=== PATIENT | female | born 1945 | race Caucasian/White ===

== ENCOUNTER → 2019-11-27 14:35 | Outpatient (BNVA) | payer MEDICARE, SELFPAY | PROVIDERS: Family Provider Nurse Practitioner Family; PCP Nurse Practitioner Family; Visit Provider Nurse Practitioner Family | DX: H53.9 Unspecified visual disturbance (principal); I10 Essential (primary) hypertension; E78.5 Hyperlipidemia, unspecified; R25.2 Cramp and spasm; F41.9 Anxiety disorder, unspecified; F32.9 Major depressive disorder, single episode, unspecified; K21.9 Gastro-esophageal reflux disease without esophagitis | CPT/HCPCS: 80053; 80061; 84443; 85025 ==

== ENCOUNTER 2019-12-13 07:44 | Outpatient (CLI) | payer MEDICARE, SELFPAY ==
--- NOTE | 2019-12-13 08:00 | USCV_ITS ---
Margot Larsen Age: 74 Gender: F : 1945 Exam Date: 12/13/2019 07:46 Ordering Phys: Sara Madrigal [employer] Technologist: Rebecca Stoddard Exam Location: [facility] [place] Indication: Vision Disturbance Risk Factors: Previous Vascular Surgery: None Right Brachial BP: / Left Brachial BP: / Right Left Velocity (cm/s) Spectral Plaque Velocity (cm/s) Spectral Plaque Syst/Diast Broadening Syst/Diast Broadening 59.20/ 13.80 Prox CCA 81.50 / 12.50 67.30/ 15.40 Mid CCA 58.60 / 13.90 54.60/ 16.10 Distal CCA 56.80 / 16.50 71.00/ 17.70 Prox ICA 55.90 / 17.10 79.70/ 25.10 Mid ICA 60.00 / 19.70 77.40/ 21.40 Distal ICA 81.50 / 27.40 71.00 ECA 91.50 1.18 ICA/CCA 1.39 Antegrade Vertebral Antegrade 36.60/ 5.00 cm/s 48.00/ 9.40 cm/s Bi Subclavian Bi 64.30 81.50 FINDINGS At this time there appears to be irregular shaped plaque in the proximal ICA noted bilaterally. CONCLUSIONS Right ICA stenosis <50%. Moderate atheromatous plaque right carotid bulb/ICA. Left ICA stenosis <50%. Moderate atheromatous plaque left carotid bulb/ICA. Normal antegrade Doppler flow noted in the right vertebral artery. Normal antegrade Doppler flow noted in the left vertebral artery. David Snyder MD (Electronically Signed) Final Date: 13 December 2019 10:21 S
== END 2019-12-13 07:45 | disposition home or self-care (01) ==
PROVIDERS: Family Provider Nurse Practitioner Family; PCP Nurse Practitioner Family; Visit Provider Nurse Practitioner Family
DX: H53.9 Unspecified visual disturbance (principal); I65.23 Occlusion and stenosis of bilateral carotid arteries
CPT/HCPCS: 93880

== ENCOUNTER 2020-04-21 10:20 | Outpatient (CLI) | payer OTHER, SELFPAY ==
--- NOTE | 2020-04-21 10:28 | XRR_ITS ---
PROCEDURE INFORMATION: Exam: XR Left Hip with Pelvis when Performed Exam date and time: 04/21/2020 11:03 AM Age: 75 years old Clinical indication: Patient HX: Intermittent left hip pain while walking for several years, no known injury; Additional info: Hip joint pain left TECHNIQUE: Imaging protocol: XR Left hip with pelvis when performed. Views: 2 or 3 views. COMPARISON: No relevant prior studies available. FINDINGS: Bones/joints: Mild degenerative changes within the hip including mild joint space narrowing and early osteophyte formation. No fracture. The trabecular stress markings normal. Soft tissues: Unremarkable. XR/XR hip LT 2-3V wo/w pel* [id number] IMPRESSION: Mild degenerative changes within the hip.
== END 2020-04-21 10:21 | disposition home or self-care (01) ==
LOC: RAD 10:25
PROVIDERS: PCP Nurse Practitioner Family; Visit Provider Nurse Practitioner Family
DX: M25.552 Pain in left hip (principal)
CPT/HCPCS: 73502

== ENCOUNTER 2020-09-16 13:23 | Outpatient (CLI) | payer MEDICARE, SELFPAY ==
--- NOTE | 2020-09-16 13:15 | XRR_ITS ---
PROCEDURE INFORMATION: Exam: XR Abdomen, 1 View Exam date and time: 09/16/2020 2:04 PM Age: 75 years old Clinical indication: Condition or disease; Kidney or ureter condition; Calculus (stone) in kidney; Additional info: Bilateral renal calculus TECHNIQUE: Imaging protocol: XR of the abdomen. Views: Frontal supine view of the abdomen. 1 View. COMPARISON: [place] XR KUB [id number] 09/11/2019 11:51 AM FINDINGS: Gastrointestinal tract: Normal. No bowel dilation. Organs: Calcified caliceal stones are present in the proximal collecting system of both kidneys. The right renal stone measures 8.8 mm, the left renal stone measures 9.3 mm. These findings were present on prior examination and appears similar. The kidneys are partially obscured by colonic contents Bones/joints: Unremarkable. XR/XR KUB [id number] IMPRESSION: 1. No acute GI abnormality. 2. Stable bilateral calcified renal stones
== END 2020-09-16 13:24 | disposition home or self-care (01) ==
LOC: RAD 13:49
PROVIDERS: PCP Nurse Practitioner Family; Visit Provider Urology
DX: N20.0 Calculus of kidney (principal)
CPT/HCPCS: 74018; 81003; 87086

== ENCOUNTER 2020-12-17 15:19 | Outpatient (CLI) | payer MEDICARE, SELFPAY | END 2020-12-17 15:20 | disposition home or self-care (01) | LOC: LAB 07-05 10:41 | PROVIDERS: PCP Nurse Practitioner Family; Visit Provider Urology | DX: N39.41 Urge incontinence (principal) | CPT/HCPCS: 81003 ==

== ENCOUNTER 2021-01-21 09:15 | Outpatient (CLI) | payer OTHER, SELFPAY ==
--- NOTE | 2021-01-21 09:22 | US_ITS ---
WS: [id number] RIGHT UPPER QUADRANT ULTRASOUND HISTORY: ELEVATED LIVER FUNCTION TEST COMPARISON: None available. Liver: 15.2 cm in length. Normal size liver. Moderate diffuse coarsened echotexture. Surface of the l iver is slightly irregular. No mass or bile duct dilatation. Gallbladder: Normally distended gallbladder with no stones or wall thickening. CBD: 0.4 cm Pancreas: Poorly visualized pancreas. Right kidney: 9.0 cm in length. Normal size and echogenicity. No hydronephrosis or mass. Aorta and IVC: Unremarkable abdominal aorta and IVC. No ascites. US/US abdomen limited [id number] IMPRESSION: 1. Normal gallbladder. 2. Moderate hepatic steatosis. Early changes of cirrhosis may appear similar.
== END 2021-01-21 09:16 | disposition home or self-care (01) ==
LOC: RAD 09:18
PROVIDERS: PCP Nurse Practitioner Family; Visit Provider Nurse Practitioner Family
DX: R94.5 Abnormal results of liver function studies (principal); K76.0 Fatty (change of) liver, not elsewhere classified
CPT/HCPCS: 76705

== ENCOUNTER 2021-01-24 16:19 | Emergency (ER) | payer MEDICARE, SELFPAY ==
[2021-01-24 16:52] VITALS: BP 180/67; PULSE 82; RESP 18; TEMP 36.9; O2SAT 98; BMI 23.3
--- NOTE | 2021-01-24 18:09 | CTR_ITS ---
PROCEDURE INFORMATION: Exam: CT Abdomen And Pelvis With Contrast Exam date and time: 01/24/2021 6:12 PM Age: 76 years old Clinical indication: Abdominal pain; Localized; Right lower quadrant (rlq); Prior surgery; Surgery date: 6+ months; Surgery type: Hyst; Patient HX: C/O rlq pain w nausea TECHNIQUE: Imaging protocol: Computed tomography of the abdomen and pelvis with contrast. Radiation optimization: All CT scans at this facility use at least one of these dose optimization techniques: automated exposure control; mA and/or kV adjustment per patient size (includes targeted exams where dose is matched to clinical indication); or iterative reconstruction. Contrast material: OMNI 300; Contrast volume: 75 ml; Contrast route: INTRAVENOUS (IV); COMPARISON: CR XR hip LT 2-3V wo/w pel* [id number] 04/21/2020 11:07 AM RADIATION DOSE METRICS: Total DLP (mGy-cm): 790 FINDINGS: Liver: Normal. No mass. Gallbladder and bile ducts: Normal. No calcified stones. No ductal dilation. Pancreas: Normal. No ductal dilation. Spleen: Normal. No splenomegaly. Adrenal glands: Normal. No mass. Kidneys and ureters: There is a 7 mm x 6 mm calculus in the proximal right ureter.Mild to moderate hydronephrosis/hydroureter and associated inflammatory stranding. There are nonobstructing bilateral renal calculi. There are sub cm cyst in the left kidney with benign features. Follow-up is not necessary. Stomach and bowel: Unremarkable. No obstruction. No mucosal thickening. Appendix: No evidence of appendicitis. Intraperitoneal space: Unremarkable. No free air. No significant fluid collection. Vasculature: Unremarkable. No abdominal aortic aneurysm. Lymph nodes: There are pulmonary parenchymal calcifications consistent with remote granulomatous organism exposure.There are calcified mediastinal and perihilar lymph nodes consistent with prior granulomatous exposure. Urinary bladder: Unremarkable as visualized. Reproductive: The uterus is not visualized, consistent with hysterectomy. Bones/joints: There are degenerative changes in the lumbar spine. Lower lumbar disc bulges are present. Soft tissues: Unremarkable. CT/CT abdomen pelvis w con* [id number] IMPRESSION: There is a 7 mm x 6 mm calculus in the proximal right ureter with obstructive changes as described above. COMMENTS: Consistent with the [employer]'s Incidental Findings Committee white paper (J Am Misty Radiol 2018): Any incidental renal lesion less than 1 cm or classified as too small to characterize, or any incidental cystic renal lesion characterized as simple-appearing, is likely benign. No follow-up imaging is recommended for these lesions per consensus recommendations based on imaging criteria. Radiation Dose CTDIVOL = (mGy): DLP = 790 (mGy-cm)
--- NOTE | 2021-01-24 18:18 | ED_ITS ---
HPI - Abdominal Pain General: Chief Complaint: Abdominal Pain Stated Complaint: ABD pain Time Seen by Provider: 01/24/21 18:08 History of Present Illness: MD elicited complaint: abdominal pain Pertinent past history: kidney stones and other Onset (ago): hour(s) (12) Pain Consistency: intermittent Location: RLQ Severity: moderate Quality: cramping and stabbing Radiation: none Migration to: no migration Relieving factors: nothing Associated Symptoms: Reports nausea; Denies change in stool character, diarrhea, dysuria, fever(s), hematuria and vomiting Review of Systems Const: Denies: fever(s) Eyes: Denies: change in vision Card: Denies: chest pain or palpitations Resp: Denies: dyspnea, productive cough or non-productive cough GI: Reports: nausea; Denies: vomiting, diarrhea or change in stool character : Denies: dysuria or hematuria Neuro: Denies: headache(s) or confusion Psych: Denies: anxiety PFSH ED PFSH: Medical History (Updated 01/24/21 @ 20:51 by Alfonzo Dominguez DO) Anxiety and depression Hyperlipidemia Hypertension Family History (Updated 10/30/19 @ 15:49 by Renee Aguilera LPN) Mother Cancer Father Cancer Social History (Updated 10/30/19 @ 15:50 by Renee Aguilera LPN) Smoking and tobacco status: never smoked Alcohol intake: never Female Reproductive History: Para: 4 Physical Exam Const: GENERAL APPEARANCE: well developed ORIENTATION/CONSCIOUSNESS: Yes oriented to person, Yes oriented to place and Yes oriented to time HENMT: COMMON NORMALS: normocephalic, external ears normal and Normal external nose present HEAD & SCALP: normocephalic FACE & SINUS: normal facial exam NOSE: Normal external nose present and No nasal discharge present EXTERNAL EAR: Yes external ears normal Eye: COMMON NORMALS: Equal, round and reactive pupils present, EOMs intact bilaterally and conjunctivae normal EYELID: eyelids normal CONJUNCTIVA: Yes conjunctivae normal PUPIL: Yes Equal, round and reactive pupils present Chest: COMMONS NORMALS: normal inspection of the chest CHEST: No tenderness Resp: COMMON NORMALS: clear to auscultation bilaterally EFFORT & INSPECTION: No tachypneic, No respiratory distress, No retractions, No uses accessory muscles and No tracheal deviation AUSCULTATION: clear to auscultation bilaterally, no rhonchi, no wheezes and lung sounds not diminished Cardio: COMMON NORMALS: regular rate and regular rhythm RATE: regular rate RHYTHM: regular rhythm HEART SOUNDS: no murmurs PERIPHERAL PULSES: radial pulses present GI: INSPECTION: No abdominal distension AUSCULTATION: No Hyperactive bowel sounds present and No Hypoactive bowel sounds present PALPATION: Yes Tenderness to palpation present (GI) Details: RLQ, No Guarding due to palpation present (GI) and No Rigid due to palpation PERCUSSION: no dullness to percussion and no tympanic to percussion : COMMON NORMALS: Yes no CVA tenderness BLADDER/KIDNEY EXAM: Yes no CVA tenderness Back/Pelvis: COMMON NORMALS: no CVA tenderness Neuro: SENSORIUM/ORIENTATION: Yes oriented to person, Yes oriented to place and Yes oriented to time Psych: COMMON NORMALS: mental status grossly normal Skin: COMMON NORMALS: no rashes or lesions noted GENERAL SKIN EXAM: no rashes or lesions noted Course Vital Signs: Vital signs: Vital Signs Temperature 98.4 F 01/24/21 16:52 Pulse Rate 88 01/24/21 21:12 Respiratory Rate 18 01/24/21 21:12 Blood Pressure 161/101 01/24/21 21:12 Pulse Oximetry 97 01/24/21 21:12 MDM - Abdominal Pain MDM Narrative: Medical decision making narrative: White blood cell count 8.8. Hemoglobin 12.4. Electrolytes are benign. Creatinine is 0.7. CT with contrast shows a 6 x 7 proximal ureter stone on the right causing mild to moderate hydronephrosis, likely the cause of her symptoms. Her symptoms are minimal at this point. She does have increased white blood cells in her urine, but no leukocyte esterase or nitrite. She will be covered with antibiotics, given pain medication, and asked to follow-up as an outpatient. Lab Data: Labs: Lab Results 01/24/21 01/24/21 01/24/21 Range/Units 18:28 18:28 18:28 WBC 8.8 (4.0-10.0) 10^3/ uL RBC 4.52 (4.1-5.3) 10^6/u L Hgb 12.4 (11.5-15.3) g/dL Hct 39.9 (37.0-47.0) % MCV 88.3 (81-99) fL MCH 27.4 L (28.0-34.0) pg MCHC 31.1 (30.0-36.0) g/dL RDW 14.9 (12.1-15.1) % Plt Count 272 (130-400) 10^3/c mm MPV 11.9 H (7.4-10.4) fL Neut % (Auto) 72.6 % Lymph % (Auto) 20.0 % [place] % (Auto) 6.6 % Eos % (Auto) 0.0 % Baso % (Auto) 0.5 % Neut # (Auto) 6.40 (1.8-7.7) 10^3/u L Lymph # (Auto) 1.8 (0.8-4.8) 10^3/u L [place] # (Auto) 0.6 (0.2-0.9) 10^3/u L Eos # (Auto) 0.0 (0.0-0.8) 10^3/u L Baso # (Auto) 0.0 (0.0-0.1) 10^3/u L Nucleated RBC % (a uto) 0 % Nucleated RBCs # 0.0 /100WBC Sodium 144 (136-145) mmol/L Potassium 4.6 (3.5-5.1) mmol/L Chloride 106 (98-107) mmol/L Carbon Dioxide 27 (22-29) mmol/L Anion Gap 15.6 (5-19) BUN 19 (8-23) mg/dL Creatinine 0.7 (0.5-0.9) mg/dL GFR Calculation Not Reportable Glucose 87 (65-115) mg/dL Calculated Osmolal ity 300 H (285-295) mOsm/k g Lactate 0.9 (0.5-2.2) mmol/L Calcium 8.9 (8.5-10.5) mg/dL Total Bilirubin 0.6 (0.15-1.2) mg/dL AST 94 H (0-32) U/L ALT 55 H (0-33) U/L Alkaline Phosphata se 217 H (35-105) IU/L C-Reactive Protein 12.5 H (0.0-4.9) mg/L Total Protein 8.0 (6.6-8.7) g/dL Albumin 3.9 (3.5-5.2) g/dL Globulin 4.1 (1.3-4.6) g/dL Lipase 28 (13-60) U/L Urine Color (Yellow) Urine Appearance (CLEAR) Urine pH (5-7) Ur Specific Gravit y (1.005-1.030) Urine Protein (Negative) Urine Glucose (UA) (Normal) Urine Ketones (Negative) Urine Blood (Negative) Urine Nitrate (Negative) Urine Bilirubin (Negative) Urine Urobilinogen (Negative) mg/dL Ur Leukocyte Humaira ase (Negative) Urine RBC (0-2) /hpf Urine WBC (0-5) /hpf Ur Squamous Epith Cells (0-5) /hpf Amorphous Sediment Urine Bacteria (NONE) /hpf 01/24/21 Range/Units 19:56 WBC (4.0-10.0) 10^3/ uL RBC (4.1-5.3) 10^6/u L Hgb (11.5-15.3) g/dL Hct (37.0-47.0) % MCV (81-99) fL MCH (28.0-34.0) pg MCHC (30.0-36.0) g/dL RDW (12.1-15.1) % Plt Count (130-400) 10^3/c mm MPV (7.4-10.4) fL Neut % (Auto) % Lymph % (Auto) % [place] % (Auto) % Eos % (Auto) % Baso % (Auto) % Neut # (Auto) (1.8-7.7) 10^3/u L Lymph # (Auto) (0.8-4.8) 10^3/u L [place] # (Auto) (0.2-0.9) 10^3/u L Eos # (Auto) (0.0-0.8) 10^3/u L Baso # (Auto) (0.0-0.1) 10^3/u L Nucleated RBC % (a uto) % Nucleated RBCs # /100WBC Sodium (136-145) mmol/L Potassium (3.5-5.1) mmol/L Chloride (98-107) mmol/L Carbon Dioxide (22-29) mmol/L Anion Gap (5-19) BUN (8-23) mg/dL Creatinine (0.5-0.9) mg/dL GFR Calculation Glucose (65-115) mg/dL Calculated Osmolal ity (285-295) mOsm/k g Lactate (0.5-2.2) mmol/L Calcium (8.5-10.5) mg/dL Total Bilirubin (0.15-1.2) mg/dL AST (0-32) U/L ALT (0-33) U/L Alkaline Phosphata se (35-105) IU/L C-Reactive Protein (0.0-4.9) mg/L Total Protein (6.6-8.7) g/dL Albumin (3.5-5.2) g/dL Globulin (1.3-4.6) g/dL Lipase (13-60) U/L Urine Color Yellow (Yellow) Urine Appearance Sl hazy (CLEAR) Urine pH 6 (5-7) Ur Specific Gravit y 1.005 (1.005-1.030) Urine Protein Neg (Negative) Urine Glucose (UA) Norm (Normal) Urine Ketones Negative (Negative) Urine Blood 2+ H (Negative) Urine Nitrate Negative (Negative) Urine Bilirubin Neg (Negative) Urine Urobilinogen Norm (Negative) mg/dL Ur Leukocyte Humaira ase Negative (Negative) Urine RBC 5-10 H (0-2) /hpf Urine WBC 40-55 H (0-5) /hpf Ur Squamous Epith Cells 25-40 H (0-5) /hpf Amorphous Sediment Not Reportable Urine Bacteria 1+ H (NONE) /hpf Discharge Plan Discharge Patient Disposition: Home Clinical Impression: Ureterolithiasis Condition: Stable Prescriptions: New hydrocodone-acetaminophen 7.5-325 mg tablet 1 tab PO Q8H PRN (Reason: pain) Qty: 10 RF: 0 cefdinir 300 mg capsule 300 mg PO BID 5 Days Qty: 10 RF: 0 Zofran 4 mg tablet 4 mg PO Q6H PRN (Reason: nausea and vomiting) Qty: 10 RF: 0 No Action Prilosec OTC 20 mg tablet,delayed release (DR/EC) 20 mg PO ONCE RF: 0 duloxetine [Cymbalta] 60 mg capsule,delayed release(DR/EC) 60 mg PO ONCE 30 Days Qty: 30 RF: 2 amlodipine 5 mg tablet 5 mg PO QDAY 30 Days Qty: 30 RF: 2 atorvastatin 20 mg tablet 20 mg PO QDAY 30 Days Qty: 30 RF: 2 lisinopril 30 mg tablet 30 mg PO QDAY 30 Days Qty: 30 RF: 2 Discharge Orders: Discharge ED (Routine); Ordered 01/24/21 Ordered By: Alfonzo Dominguez Referrals: Jose Cardozo MD [Physician] - 1-3 days Carlyn Rose FNP [Primary Care Provider] - Discharge Diet: Advance as tolerated Discharge Activity: Increase activity as tolerated Patient Instructions: Kidney Stones (ED), Renal Colic (ED), Opioid Safety Activity Restrictions/Additional Instructions: Call urology Tuesday to make an appointment to be seen. Return for worsening pain despite treatment, fever greater than 100, vomiting liquids or medications, any other concerning symptoms. Coding Level of Care Code ED Guest Relations Representative for Chg Fwd Exam Comprehensive
[2021-01-24 18:31] VITALS: BP 196/62; PULSE 77; RESP 18; O2SAT 95
[2021-01-24 18:40] LABS: Basophils % 0.5 %; Hematocrit 39.9 % (37.0-47.0); Hemoglobin 12.4 g/dL (11.5-15.3); Lymphocytes # 1.8 10^3/uL (0.8-4.8); Mean Corpuscular HGB Conc 31.1 g/dL (30.0-36.0); Mean Corpuscular Hemoglobin 27.4 pg (28.0-34.0); Mean Corpuscular Volume 88.3 fL (81-99); Mean Platelet Volume 11.9 fL (7.4-10.4); Monocytes # 0.6 10^3/uL (0.2-0.9); Monocytes % 6.6 %; Neutrophils % 72.6 %; Nucleated Red Blood Cells % 0 %; Platelet Count 272 10^3/cmm (130-400); Red Blood Count 4.52 10^6/uL (4.1-5.3); Red Cell Distribution Width 14.9 % (12.1-15.1); White Blood Count 8.8 10^3/uL (4.0-10.0)
[2021-01-24] MEDS: ondansetron 2 mg/ML SDV 2 mL 4 MG IVP (18:49)
[2021-01-24] MEDS: sodium chloride 0.9% 1,000 ML 999 ML IV (18:49)
[2021-01-24] MEDS: enalaprilat 1.25 mg/mL Inj IVP (18:49)
[2021-01-24 19:15] LABS: Alanine Aminotransferase 55 U/L (0-33); Albumin Level 3.9 g/dL (3.5-5.2); Alkaline Phosphatase 217 IU/L (35-105); Anion Gap 15.6 (5-19); Aspartate Amino Transferase 94 U/L (0-32); Blood Urea Nitrogen 19 mg/dL (8-23); C Reactive Protein 12.5 mg/L (0.0-4.9); Calcium 8.9 mg/dL (8.5-10.5); Carbon Dioxide 27 mmol/L (22-29); Chloride 106 mmol/L (98-107); Globulin 4.1 g/dL (1.3-4.6); Glucose 87 mg/dL (65-115); Lactate (Lactic Acid level) 0.9 mmol/L (0.5-2.2); Lipase 28 U/L (13-60); Osmolality Calculated 300 mOsm/kg (285-295); Potassium 4.6 mmol/L (3.5-5.1); Sodium 144 mmol/L (136-145); Total Bilirubin 0.6 mg/dL (0.15-1.2)
[2021-01-24] MEDS: iohexol 300 mg/mL 100 mL Btl IV (19:39)
[2021-01-24 19:58] VITALS: BP 208/76; PULSE 91; RESP 16; O2SAT 97
[2021-01-24 20:26] LABS: Add Urine Microscopic? YES; Bilirubin Urine Neg (Negative); Blood Urine 2+ (Negative); Glucose Urine UA Norm (Normal); Ketones Urine Negative (Negative); Leukocyte Esterase Urine Negative (Negative); Nitrate Urine Negative (Negative); Protein Urine Neg (Negative); Specific Gravity, Urine 1.005 (1.005-1.030); Urine Appearance SL Hazy (CLEAR); Urine Color Yellow (Yellow); Urobilinogen Urine Norm (Negative); pH Urine 6 (5-7)
[2021-01-24 20:29] LABS: Add Urine Culture? No; Bacteria Urine 1+ /hpf; Squamous Epithelial Cell Urine 25-40 /hpf (0-5); WBC Urine 40-55 /hpf (0-5)
[2021-01-24 20:44] VITALS: BP 188/80; PULSE 88; RESP 16; O2SAT 97
[2021-01-24 21:12] VITALS: BP 161/101; PULSE 88; RESP 18; O2SAT 97
== END 2021-01-24 21:14 | disposition home or self-care (01) ==
PROVIDERS: Emergency Provider Emergency Medicine; PCP Nurse Practitioner Family
DX: N20.1 Calculus of ureter (principal); I10 Essential (primary) hypertension; E72.3 Disorders of lysine and hydroxylysine metabolism
CPT/HCPCS: 74177; 80053; 81001; 83605; 83690; 85025; 86140; 96361; 96374; 96375; 99284; J2405; J3490; J7030; Q9967

== ENCOUNTER 2021-01-26 10:18 | Outpatient (CLI) | payer MEDICARE, SELFPAY ==
--- NOTE | 2021-01-26 10:00 | XRR_ITS ---
PROCEDURE INFORMATION: Exam: XR Abdomen Exam date and time: 01/26/2021 10:24 AM Age: 76 years old Clinical indication: Condition or disease; Kidney or ureter condition; Calculus (stone) in ureter; Prior surgery; Surgery type: Uterine; Patient HX: Pin in right posterior side; Additional info: Stones TECHNIQUE: Imaging protocol: XR of the abdomen. Views: Frontal supine view of the abdomen. 1 View. COMPARISON: CT abdomen pelvis w con* [id number] 01/24/2021 7:53 PM FINDINGS: Gastrointestinal tract: Normal. No bowel dilation. Bones/joints: A right ureteral calculus measuring about 1 cm in diameter is at the L3 level. Multiple calcifications project on the lower pole of the left kidney. Degenerative changes and scoliosis are present in the lumbar spine. XR/XR KUB [id number] IMPRESSION: 1. The right ureteral calculus projects at the L3 level. 2. Left nephrolithiasis.
== END 2021-01-26 10:19 | disposition home or self-care (01) ==
LOC: RAD 10:22
PROVIDERS: PCP Nurse Practitioner Family; Visit Provider Urology
DX: N20.1 Calculus of ureter (principal); N20.0 Calculus of kidney
CPT/HCPCS: 74018; 81003

== ENCOUNTER 2021-01-26 11:56 | Inpatient (IN) | payer MEDICARE, SELFPAY ==
[2021-01-26] VITALS (16 sets, daily range): BP systolic 121–196; BP diastolic 55–86; PULSE 70–93; RESP 16–24; TEMP 36.1–37.3; O2SAT 94–100; BMI 22.6
--- NOTE | 2021-01-26 15:27 | PC.CHAP ---
Pastoral Care Encounter/Spiritual Assessment Type of Contact [] Declined senior network engineer visit [] Patient/Family/Request visit [] Outpatient visit [] Follow-up visit [] Physician referral [] Code/Alert [] Routine visit [] Staff referral [] Actively dying [] Patient sleeping [] Family support [] [] Out of room [] Palliative care [] [] Receiving care in room [] Pre-surgical visit [] Trauma [] Long length of stay [] ICU visit [] Other: Relational/Emotional Strength [] Patient feels connected with others/family/visitors/staff [] Distress [] Loneliness/isolation [] Abandonment Spirituality of Patient [] Person of Araceli [] Attends [employer] of their Araceli [] Believes in Prayer [] Reads Bible or Baptism materials [] There are Spiritual issues to be addressed Account General Manager Interventions [] Prayer [] Active listening [] Non-anxious presence [] Spiritual/emotional support [] Crisis/trauma care [] Spiritual counseling [] Bereavement support [] Provided bereavement packet [] Provided Bible/devotional materials [] Provided toy/stuffed animal, coloring book to patient or family member [] Provided Communion [] Anointing/[place] [] Salvation [] Completed spiritual assessment [] Other: Impact on Illness or Injury [] Angry [] Fearful [] Anxious [] Often cries [] Exhaustion [] Unable to work [] Unable to attend religious [] Unable to walk/stand [] Unable to read [] Unable to drive [] Unable to eat/drink [] Unable to sleep [] Unable to be with family [] Patient intubated [] Other: Summary Time spent with patient
--- NOTE | 2021-01-26 18:57 | ANES.PREANE2 ---
Pre-Anesthetic Assessment Pre-Anesthetic Assessment: Height/Weight: Height 1.5 m Weight 50.848 kg Temp Pulse Resp BP Pulse Ox 97.9 F 76 18 196/80 96 01/26/21 15:18 01/26/21 15:18 01/26/21 15:18 01/26/21 15:18 01/26/21 15:18 Preop Diagnosis: renal colic Proposed Procedure: Operation Date: 01/26/21 19:45 Proposed Procedures p Cystoscopy 49516 N20.0(Right) - Jose Cardozo MD s ESWL(Right) - Jose Cardozo MD Familial anesthetic complications: none Was Beta Dalton taken within 24 hours: N/A Was Clonidine taken within 24 hours: N/A Last intake: NPO > 8 hrs Social: Social History: No alcohol and No tobacco Exam: Pre-Anes Outpt Exam: alert, oriented x 3, clear to auscultation bilaterally and regular rate & rhythm Airway: Cervical ROM: WNL MP: 2 Dentition: Full (teeth are pinned in (implants)) CV/HEM: CV/HEM: HTN GI: GI: GERD Metabolic: Metabolic: Hyperlipidemia Anesthetic Plan: ASA status: 2 Anesthesia: General Risk of > 500 ml blood loss (7ml/kg in children): No PFSH Anesthesia PFSH: Medical History Anxiety and depression Arthritis Dyslipidemia Essential hypertension GERD (gastroesophageal reflux disease) Right ureteral calculus Surgical History H/O: hysterectomy History of colonoscopy 2011 Family History (System 01/26/21 @ 16:26 by Bonnie Duke) Father Cancer COLON Mother , AGE OF 57 Cancer OVARIAN Mother Cancer Father Cancer Social History (System 01/26/21 @ 16:26 by Bonnie Duke) Smoking and tobacco status: never smoked Second hand smoke exposure: No Smoking risk assessment/counseling performed?: No Alcohol intake: never Desire information about alcohol rehabilitation?: No Counseling given: No Desire information about substance/drug rehabilitation?: No Counseling given: No Adopted: No Caregiver/support person: No Lives independently: Yes Household members: family Housing: House Marital status: / Current occupational status: retired History of recent travel: No Current gender identity: Female Female Reproductive History: Para: 4 Data Anesthesia Cardiac Studies: No Data to Display
--- NOTE | 2021-01-26 19:02 | PC.NURSE ---
PT TAKEN TO OR FOR PROCEDURE.
--- NOTE | 2021-01-26 19:29 | P.HPUD_ITS ---
Surgery/Procedure H&P Update DATE OF PROCEDURE: January 26, 2021 DATE H&P PERFORMED: 01/26/21 H&P UPDATE INFORMATION: I have reviewed H&P completed within last 30 days, I have examined patient prior to procedure, No changes to prior documentation and H&P is in [facility]MR on date indicated PREOP DIAGNOSIS: Right mid ureteral stone with obstruction and refractory pain PLANNED PROCEDURE: Operation Date: 01/26/21 19:45 Proposed Procedures p Cystoscopy 22205 N20.0(Right) - Jose Cardozo MD s ESWL(Right) - Jose Cardozo MD
--- NOTE | 2021-01-26 19:48 | P.OP_ITS ---
Operative Report Date of procedure: January 26, 2021 Pre-op Diagnosis: Right mid ureteral stone with obstruction and refractory pain Post-op diagnosis: same Procedure Done: 1. Extracorporeal shockwave lithotripsy to right mid ureteral stone 2. Cystoscopy with right ureteral stent placement (7 Brazilian by 24 cm double- pigtail without string) Implants: Right ureteral stent Surgeon: Cas Advertising Intern: Lithotripsy Lime Burner: Bri Anesthesia: General Estimated blood loss: Minimal Urine output: Not measured Complications: None Findings: Stone easily identified. Treated with 3000 shocks with excellent change. Stent placed post ESWL due to the bulk of the stone burden. Condition: stable Disposition: PACU Brief History: Mrs. Larsen is a very pleasant 76-year-old white female who was in the emergency department on 01/24/2021 with complaints of severe intermittent right renal colicky type pain. A CT scan was done for suspicion of stone in she had a large greater than 1 cm stone identified obstructing the right mid ureter. She was aggressively managed with pain medication and fluid resuscitation in the emergency department and felt good enough to be managed on outpatient basis. She called this morning that with increasing pain and difficulty controlling it. I saw her in the clinic. Because of her significant pain I recommended she be admitted for further evaluation and treatment. Pain medication was utilized on the floor. Ultimately she elected to proceed with treatment. Endoscopy versus ESWL was considered and because of the access to the machine today ESWL was chosen with the stent placement. Procedure: After urgent evaluation examination and obtaining of informed consent she was taken to the operating suite for 521 where general anesthesia was administered without difficulty after appropriate timeout was performed, SCDs confirmed to be functioning, preoperative antibiotics administered, beta-reid protocol confirmed. She was positioned on the Dornier unit in supine position such that the stone was located at the focal point utilizing biplanar fluoroscopy. The stone was easily identified. She was positioned in slight Trendelenburg. Shockwave therapy was initiated intensity of 1 advanced slowly to an intensity of 4. Rate was initiated at 70 and later advanced to 90 once change in the stone was identified. The change was quite dramatic. There was some streaming of the stone fragments proximally and by the completion of the treatment of 2600 shocks it was difficult to identify any definitive stone fragments. Because of the bulk of the stone though it was decided to leave a stent. She was then repositioned in dorsolithotomy position paying careful attention to avoiding pressure points. Prepped and draped in the usual sterile fashion. 21 Brazilian cystoscope with 30 degree lens was introduced into the urethra meatus and advanced to the bladder under videoscopy. Bladder was systematically examined and found to be within normal limits. There was already some sand in the bladder and a little bit of blood. Flexible tip guidewire was then advanced up the right ureter easily bypassing the area where the stone had been located. A 7 Brazilian by 24 cm double-pigtail stent was advanced over the guidewire through the cystoscope into appropriate position as confirmed via fluoroscopy and cystoscopy. The bladder was drained and the procedure was completed. She tolerated the procedure well without complications and was awakened in the operating room and returned to the recovery in stable condition. PLANS: 1. Maintain normal home medications 2. Anticipate discharge from the hospital tomorrow morning.
[2021-01-26] MEDS: ceFAZolin 1,000 MG in sodium chloride 0.9% (plus) 50 ML 100 MG IV (20:00)
[2021-01-26] MEDS: labetalol 5 mg/mL SDV 20mL IVP (20:48)
--- NOTE | 2021-01-26 21:00 | ANE.PACU2 ---
Inpatient post-anesthesia follow up: Airway intact: Yes Vital signs: Temperature 97.8 F Pulse Rate 74 Respiratory Rate 17 Blood Pressure 141/55 Pulse Oximetry 96 Oxygen Delivery Me thod Room Air Oxygen Flow Rate 8 Fraction of Inspir ed Oxygen Hydration adequate: Yes Nausea and vomiting: No Pain level: 3 Mental status: Baseline
[2021-01-26] MEDS: hyDRALAzine 20 mg/mL INJ 1 mL 5 MG IVP (21:11)
[2021-01-26 21:56] LABS: Glucose Point of Care 72 mg/dL (70-110)
[2021-01-27] MEDS: sodium chlor 0.9% + KCl 20 mEq 20 MEQ/1,000 ML BAG 30 MEQ IV (00:27)
[2021-01-27 00:50] VITALS: BP 159/65; PULSE 76; RESP 17; TEMP 36.8; O2SAT 96
[2021-01-27] MEDS: pantoprazole DR 40 mg Tablet PO (00:51)
[2021-01-27] MEDS: cyclobenzaprine 10 mg Tablet PO (00:51)
[2021-01-27 02:50] VITALS: BP 175/75; PULSE 79; RESP 17; TEMP 36.8; O2SAT 95
[2021-01-27 04:50] VITALS: BP 151/68; PULSE 81; RESP 17; TEMP 36.6; O2SAT 94
--- NOTE | 2021-01-27 06:38 | PM.DCS ---
Discharge Providers Date of Admission: 01/26/21 11:56 Date of Discharge: January 27, 2021 Attending Provider at Admission: Jose Cardozo MD Attending Provider at Discharge: Jose Cardozo MD Primary Care Provider: Carlyn Rose Diagnoses at Discharge Discharge Diagnosis (1) Renal colic on right side: Status: Resolved (2) Right ureteral calculus: Status: Resolved (3) Renal calculus, bilateral: Status: Chronic Permanent problem details: Multi stone former with multiple treatments required for bilateral stones. (4) Essential hypertension: Status: Chronic Reason for Visit Reason for Visit: Refractory right renal colic secondary Hospital Course Hospital Course She was admitted through the clinic for pain control. 2 days earlier she had been diagnosed with a large greater than 1 cm stone in the right mid ureter with obstruction. Initially her pain was well controlled and she was managed as an outpatient. In the clinic though she was having a difficult time controlling her pain was also experiencing nausea. For that reason she was admitted for symptomatic control and for further evaluation and treatment. On the night of her admission she was treated with ESWL. Machine has been available that day. The stone responded very well to ESWL and a stent was placed to help facilitate passage of the large bulk of stone fragments. She was observed overnight for symptomatic control and did very well. On postoperative day #1 she was felt to be a good candidate for further convalescence at home and was discharged in the morning of postop day #1 in stable condition. We reviewed at discharge the results of the procedure, the significance of the internal indwelling stent and the importance of removing it at the appropriate time. We made plans for follow-up in roughly a week with a plain x-ray to assess for stent removal. We did discuss the possibility of second treatment being required either endoscopic or ESWL for large stones prior to this procedure. Overall she did very well. No complications during her hospital stay. Discharged on postop day #1 from observation status as expected. Physical Exam Const: COMMON NORMALS: no acute distress, alert and well nourished GENERAL APPEARANCE: well kempt and well developed ORIENTATION/CONSCIOUSNESS: not confused Resp: COMMON NORMALS: normal respiratory effort EFFORT & INSPECTION: No labored and No Actively coughing GI: COMMON NORMALS: Soft to palpation, non-tender and no masses PALPATION: Yes Soft to palpation Neuro: SENSORIUM/ORIENTATION: Yes alert Psych: COMMON NORMALS: mental status grossly normal APPEARANCE: Yes grossly normal and Yes well kempt ATTITUDE: Yes calm and Yes engaged Skin: COMMON NORMALS: no rashes or lesions noted and no jaundice GENERAL SKIN EXAM: no rashes or lesions noted Discharge Data Data Completed and Pending: Labs from last 24 hours 01/26/21 21:53 POC Glucose 72 Vitals: Last Vital Signs Temp 97.9 F 01/27/21 04:50 Pulse 81 01/27/21 04:50 Resp 17 01/27/21 04:50 BP 151/68 01/27/21 04:50 Pulse Ox 94 01/27/21 04:50 Discharge Plan Discharge Patient Disposition: Home Condition: Stable Prescriptions: Continued Prilosec OTC 20 mg tablet,delayed release (DR/EC) 20 mg PO ONCE RF: 0 Prilosec OTC 20 mg tablet,delayed release (DR/EC) 20 mg PO DAILY RF: 0 cyclobenzaprine 10 mg tablet 10 mg PO .hs 30 Days Qty: 30 RF: 5 duloxetine [Cymbalta] 60 mg capsule,delayed release(DR/EC) 60 mg PO DAILY 30 Days Qty: 30 RF: 5 amlodipine 5 mg tablet 5 mg PO DAILY 30 Days Qty: 30 RF: 5 lisinopril 30 mg tablet 30 mg PO DAILY 30 Days Qty: 30 RF: 5 solifenacin [Vesicare] 5 mg tablet 5 mg PO DAILY Qty: 30 RF: 6 ropinirole 2 mg tablet 1 mg PO DAILY RF: 0 magnesium oxide 400 mg magnesium tablet 250 mg PO BID RF: 0 duloxetine [Cymbalta] 60 mg capsule,delayed release(DR/EC) 60 mg PO ONCE 30 Days Qty: 30 RF: 2 amlodipine 5 mg tablet 5 mg PO QDAY 30 Days Qty: 30 RF: 2 atorvastatin 20 mg tablet 20 mg PO QDAY 30 Days Qty: 30 RF: 2 lisinopril 30 mg tablet 30 mg PO QDAY 30 Days Qty: 30 RF: 2 hydrocodone-acetaminophen 7.5-325 mg tablet 1 tab PO Q8H PRN (Reason: pain) Qty: 10 RF: 0 Zofran 4 mg tablet 4 mg PO Q6H PRN (Reason: nausea and vomiting) Qty: 10 RF: 0 Discontinued cefdinir 300 mg capsule 300 mg PO BID 5 Days Qty: 10 RF: 0 Discharge Orders: Discharge Order (Routine); Ordered 01/27/21 Ordered By: Jose Cardozo Referrals: Jose Cardozo MD [Physician] - 02/06/21 ([facility], Possible cystoscopy and stent removal) Discharge Diet: Advance as tolerated and Usual diet Discharge Activity: Increase activity as tolerated Activity Restrictions/Additional Instructions: UROLOGY: 1. Your procedure went very well. The stone was well broken up with shockwave therapy and a stent was left in to help facilitate passage and to reduce the risk of pain with stone fragment passage. 2. The stent will need to remain in until we have proven that all the remaining fragments were small enough to pass. 3. For that purpose of I will see you back in my office late next week with a plain x-ray and make that assessment. We will plan on removing the stent at that time if there are no fragments remaining that are too large to pass. 4. Typical stent symptoms include urgency, frequency, right flank pain with urination, and blood in your urine. These were normal. They will resolve once the stent is removed. 5. Please call if you have any questions or concerns. If you need to reach me after hours the hospital band machine operator can track me down. Discharge Attestations Time Spent in Discharge Care*: less than 30 min Quality Metrics Clinical Quality Measures During this hospital stay, did patient experience: None Coding Level of Care Code Acute Chg FW DC note Diagnoses Renal colic on right side N23 Right ureteral calculus N20.1 Renal calculus, bilateral N20.0 Essential hypertension I10
[2021-01-27 07:47] VITALS: BP 132/72; PULSE 63; RESP 18; TEMP 36.7; O2SAT 92
[2021-01-27] MEDS: amlodipine 5 mg Tablet PO (08:26)
[2021-01-27] MEDS: lisinopril 10 mg Tablet 30 MG PO (08:26)
[2021-01-27] MEDS: duloxetine 60 mg Capsule PO (08:26)
[2021-01-27] MEDS: ropinirole 1 mg Tablet PO (08:26)
--- NOTE | 2021-01-27 10:18 | PC.NURSE ---
IV TAKEN OUT AND INTACT. DISCHARGE INSTRUCTIONS EXPLAINED AND QUESTIONS ANSWERED. PT TAKEN TO MAIN ENTRANCE VIA WHEELCHAIR
[2021-01-27 10:19] VITALS: BP 132/72; PULSE 63; RESP 18; TEMP 36.7; O2SAT 92
== END 2021-01-27 10:20 | disposition home or self-care (01) | DRG 661 ==
PROVIDERS: Admitting Provider Urology; PCP Nurse Practitioner Family; Visit Provider Urology
PROC: 0TJB8ZZ Inspection of Bladder, Via Natural or Artificial Opening Endoscopic (ICD-10-PCS; CPT 52000; principal; 2021-01-26 19:25)
PROC: 0TC68ZZ Extirpation of Matter from Right Ureter, Via Natural or Artificial Opening Endoscopic (ICD-10-PCS; CPT 50590; 2021-01-26 19:25)
PROC: 0TC68ZZ Extirpation of Matter from Right Ureter, Via Natural or Artificial Opening Endoscopic (ICD-10-PCS; CPT 50605; 2021-01-26 19:25)
DX: N20.1 Calculus of ureter (principal); Z87.442 Personal history of urinary calculi; N39.41 Urge incontinence; F41.8 Other specified anxiety disorders; M19.90 Unspecified osteoarthritis, unspecified site; E78.5 Hyperlipidemia, unspecified; I10 Essential (primary) hypertension; K21.9 Gastro-esophageal reflux disease without esophagitis
CPT/HCPCS: 36416; 74018; 74177; 80053; 81001; 81003; 82962; 83605; 83690; 85025; 86140; 96361; 96374; 96375; 99284; C2625; J0360; J0690; J2405; J2704; J2710; J3010; J3490; J7030; Q9967

== ENCOUNTER 2021-02-06 11:14 | Outpatient (CLI) | payer MEDICARE, SELFPAY ==
--- NOTE | 2021-02-06 11:00 | XR_ITS ---
WS: [id number] [facility], AP view, 02/06/2021 Clinical Data: N20.0 - Calculus of kidney Comparison: [facility], 01/26/2021. Findings: There is a right ureteral stent in good position. The mid right ureteral calculus is not seen. The le ft renal calcifications are obscured by colon gas and stool. XR/XR [facility] [id number] Impression: 1. Satisfactory position right ureteral stent. 2. Left renal calcifications observed. By: Gas and stool.
== END 2021-02-06 11:15 | disposition home or self-care (01) ==
LOC: RAD 11:16
PROVIDERS: PCP Nurse Practitioner Family; Visit Provider Urology
DX: N20.0 Calculus of kidney (principal); Z96.0 Presence of urogenital implants
CPT/HCPCS: 74018; 81003

== ENCOUNTER 2021-04-09 15:36 | Outpatient (CLI) | payer MEDICARE, SELFPAY ==
--- NOTE | 2021-04-09 15:42 | XR_ITS ---
WS: [id number] PARANASAL SINUSES TECHNIQUE: Bruce, Jordan and lateral views HISTORY: HEADACHE COMPARISON: None available. Paranasal sinuses are well aerated. No air-fluid levels. No osseous destruction. Visualized portions of the adjacent bones are normal. No deviation of the krystal al septum. XR/XR sinus min 3V* [id number] IMPRESSION: Normal paranasal sinus films.
== END 2021-04-09 15:37 | disposition home or self-care (01) ==
PROVIDERS: PCP Nurse Practitioner Family; Visit Provider Nurse Practitioner Family
DX: R51.9 Headache, unspecified (principal)
CPT/HCPCS: 70220

== ENCOUNTER 2021-04-10 13:41 | Emergency (ER) | payer MEDICARE, SELFPAY ==
[2021-04-10] VITALS (17 sets, daily range): BP systolic 103–198; BP diastolic 41–82; PULSE 77–87; RESP 16–20; TEMP 36.8–37.1; O2SAT 96–98; BMI 25.2
--- NOTE | 2021-04-10 16:11 | CTR_ITS ---
PROCEDURE INFORMATION: Exam: CT Head Without Contrast Exam date and time: 04/10/2021 4:11 PM Age: 76 years old Clinical indication: Pain; Dizziness; Headache; Additional info: Vision changes TECHNIQUE: Imaging protocol: Computed tomography of the head without contrast. Radiation optimization: All CT scans at this facility use at least one of these dose optimization techniques: automated exposure control; mA and/or kV adjustment per patient size (includes targeted exams where dose is matched to clinical indication); or iterative reconstruction. COMPARISON: CR XR sinus min 3V* [id number] 04/09/2021 3:46 PM RADIATION DOSE METRICS: Total DLP (mGy-cm): 618.68 FINDINGS: Brain: A tiny amount of subarachnoid hemorrhage is present bilateral anterior sylvian fissures. 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 Mild atrophy and mild white matter chronic microvascular changes are noted. Tiny hyperdense foci in the right basal ganglia and right cerebellar hemisphere may be early mineral deposition. No midline shift. Cerebral ventricles: No ventriculomegaly. Paranasal sinuses: Visualized sinuses are unremarkable. No fluid levels. Mastoid air cells: Visualized mastoid air cells are well aerated. Bones/joints: Unremarkable. No acute fracture. Soft tissues: Unremarkable. CT/CT head wo con* [id number] IMPRESSION: Trace bilateral sylvian fissure subarachnoid hemorrhage. Radiation Dose CTDIVOL = (mGy): DLP = 618.68 (mGy-cm)
--- NOTE | 2021-04-10 16:17 | PC.NURSE ---
patient c/o headache, double vision with both eyes open
--- NOTE | 2021-04-10 16:21 | ED_ITS ---
HPI - Eye Problem General: Chief complaint: Eye Problems Stated complaint: double vision Time Seen by Provider: 04/10/21 16:11 History of Present Illness: HPI Narrative: 76-year-old female presents emergency room complaining of double vision. Patient stated started yesterday she was outside she was in heat. Prior to that she had attempted to go to the bathroom and had strained a bit and felt a sudden discomfort in her head. Presentation here she still has double vision as well as a headache she is also acutely hypertensive she denies any chest pain or shortness of breath. PFSH ED PFSH: Medical History Anxiety and depression Arthritis Dyslipidemia Essential hypertension GERD (gastroesophageal reflux disease) Hyperlipidemia Renal calculus, bilateral Multi stone former with multiple treatments required for bilateral stones. Right ureteral calculus Ureterolithiasis Surgical History H/O: hysterectomy History of colonoscopy 2011 Family History Father Cancer COLON Mother , AGE OF 57 Cancer OVARIAN Mother Cancer Father Cancer Social History Smoking and tobacco status: never smoked Second hand smoke exposure: No Smoking risk assessment/counseling performed?: No Alcohol intake: never Desire information about alcohol rehabilitation?: No Counseling given: No Desire information about substance/drug rehabilitation?: No Counseling given: No Adopted: No Caregiver/support person: No Lives independently: Yes Household members: family Housing: House Marital status: / Current occupational status: retired History of recent travel: No Current gender identity: Female Female Reproductive History: Para: 4 Physical Exam Const: COMMON NORMALS: no acute distress GENERAL APPEARANCE: cooperative and comfortable ORIENTATION/CONSCIOUSNESS: Yes awake, Yes oriented to person, Yes oriented to place and Yes oriented to time HENMT: COMMON NORMALS: normocephalic, atraumatic, hearing grossly normal bilaterally, external ears normal, EAC's normal, TM's normal bilaterally, Normal nasal mucous membranes and turbinates present, moist oral mucous membranes and oropharynx normal HEAD & SCALP: normocephalic and atraumatic NOSE: Normal nasal mucous membranes and turbinates present EXTERNAL EAR: Yes external ears normal EXTERNAL AUDITORY CANAL: EAC's normal TYMPANIC MEMBRANE: TM's normal bilaterally Eye: COMMON NORMALS: Equal, round and reactive pupils present, EOMs intact bilaterally, conjunctivae normal and no scleral icterus CONJUNCTIVA: Yes conjunctivae normal PUPIL: Yes Equal, round and reactive pupils present Neck/C-Spine: COMMON NORMALS: full ROM, no lymphadenopathy, supple and no JVD Lymph: LYMPHATIC: no lymphadenopathy noted and no lymphedema noted Resp: COMMON NORMALS: normal respiratory effort, No retractions, No use of accessory muscles and clear to auscultation bilaterally AUSCULTATION: clear to auscultation bilaterally Cardio: COMMON NORMALS: no JVD, regular rate, regular rhythm and No murmurs present (Cardio) RATE: regular rate RHYTHM: regular rhythm GI: COMMON NORMALS: Soft to palpation and No hepatosplenomegaly present AUSCULTATION: Yes normoactive bowel sounds PALPATION: Yes Soft to palpation, No Tenderness to palpation present (GI), No Guarding due to palpation present (GI) and Yes No hepatosplenomegaly present Extremity: COMMON NORMALS: normal to inspection, capillary refill normal, no clubbing, cyanosis or edema, no calf tenderness and no pedal edema Neuro: SENSORIUM/ORIENTATION: Yes oriented to person, Yes oriented to place and Yes oriented to time Skin: COMMON NORMALS: no rashes or lesions noted GENERAL SKIN EXAM: no rashes or lesions noted Course Vital Signs: Vital signs: Vital Signs Temperature 98.7 F 04/10/21 19:50 Pulse Rate 83 04/10/21 19:31 Respiratory Rate 20 H 04/10/21 19:31 Blood Pressure 122/60 04/10/21 19:31 Pulse Oximetry 96 04/10/21 19:31 MDM - Eye Problem MDM Narrative: Medical decision making narrative: CT shows subarachnoid hemorrhage. Patient was initially given IV push doses of medication was p.o. to lower blood pressure with results of the CT she was started on nicardipine titrated to systolic pressure 100-110. Patient has no advancement of symptos. She is stable at this time discussed with neurology and with the transfer line they are debating whether or not to transfer to the ER or transfer to a direct admission were waiting on a bed assignment. We do not have neurosurgery availa ble here so she will need to be transferred. Lab Data: Labs: Lab Results 04/10/21 04/10/21 04/10/21 Range/Units 16:46 16:46 19:05 WBC 10.4 H (4.0-10.0) 10^3/ uL RBC 4.31 (4.1-5.3) 10^6/u L Hgb 11.8 (11.5-15.3) g/dL Hct 39.0 (37.0-47.0) % MCV 90.5 (81-99) fL MCH 27.4 L (28.0-34.0) pg MCHC 30.3 (30.0-36.0) g/dL RDW 15.6 H (12.1-15.1) % Plt Count 189 (130-400) 10^3/c mm MPV 12.2 H (7.4-10.4) fL Neut % (Auto) 77.1 % Lymph % (Auto) 16.1 % [place] % (Auto) 6.1 % Eos % (Auto) 0.0 % Baso % (Auto) 0.4 % Neut # (Auto) 8.02 H (1.8-7.7) 10^3/u L Lymph # (Auto) 1.7 (0.8-4.8) 10^3/u L [place] # (Auto) 0.6 (0.2-0.9) 10^3/u L Eos # (Auto) 0.0 (0.0-0.8) 10^3/u L Baso # (Auto) 0.0 (0.0-0.1) 10^3/u L Nucleated RBC % (a uto) 0 % Nucleated RBCs # 0.0 /100WBC Sodium 138 (136-145) mmol/L Potassium 4.0 (3.5-5.1) mmol/L Chloride 104 (98-107) mmol/L Carbon Dioxide 22 (22-29) mmol/L Anion Gap 16.0 (5-19) BUN 19 (8-23) mg/dL Creatinine 0.5 (0.5-0.9) mg/dL GFR Calculation Not Reportable Glucose 85 (65-115) mg/dL Calculated Osmolal ity 288 (285-295) mOsm/k g Calcium 8.5 (8.5-10.5) mg/dL Total Bilirubin 0.6 (0.15-1.2) mg/dL AST 128 H (0-32) U/L ALT 73 H (0-33) U/L Alkaline Phosphata se 260 H (35-105) IU/L Total Protein 7.1 (6.6-8.7) g/dL Albumin 3.7 (3.5-5.2) g/dL Globulin 3.4 (1.3-4.6) g/dL SARS-CoV-2 Ag (Rap id) Negative (Negative) Discharge Plan Discharge Patient Disposition: Xfer Short-Term Hosp Clinical Impression: Subarachnoid hemorrhage, Hypertensive crisis Prescriptions: No Action Prilosec OTC 20 mg tablet,delayed release (DR/EC) 20 mg PO DAILY@1999 RF: 0 amlodipine 5 mg tablet 5 mg PO DAILY 30 Days Qty: 30 RF: 5 ropinirole 2 mg tablet 1 mg PO DAILY@1999 RF: 0 magnesium oxide 400 mg magnesium tablet 250 mg PO BID@00,1999 RF: 0 meloxicam 7.5 mg tablet 7.5 mg PO DAILY@2099 RF: 0 prednisolone acetate 1 % drops,suspension See Rx Instructions .ROUTE .COMPLEX RF: 0 pantoprazole 40 mg tablet,delayed release (DR/EC) 40 mg PO DAILY@2099 RF: 0 cyclobenzaprine 10 mg tablet 10 mg PO BEDTIME@2099 RF: 0 atorvastatin 20 mg tablet 20 mg PO DAILY@2099 RF: 0 lisinopril 30 mg tablet 30 mg PO DAILY@2099 RF: 0 Cymbalta 60 mg capsule,delayed release(DR/EC) 60 mg PO DAILY@2099 RF: 0 Referrals: Carlyn Rose FNP [Primary Care Provider] - Coding Level of Care Code ED [employer] NIH stroke score NIHSS Level Of Consciousness - 1a: 0 Level Of Consciousness Questions - 1b: Both Correct Level Of Consciousness Commands - 1c: Both Correct Best Gaze - 2: Normal Visual Moore - 3: No Visual Loss (Patient does have double vision however when I unilateral eyes use she has normal vision just with attempts at using both eyes to focus causes double vision) Facial Palsy - 4: Normal Motor Arm Right - 5: No Drift Motor Arm Left - 5: No Drift Motor Leg Right - 6: No Drift Motor Leg Left - 6: No Drift Limb Ataxia - 7: Absent Sensory - 8: Normal Best Language - 9: No Aphasia Dysarthia - 10: Normal Extinction And Inattention - 11: 0 Score Total Score: 0
[2021-04-10] MEDS: amlodipine 5 mg Tablet PO (16:47)
[2021-04-10] MEDS: hyDRALAzine 20 mg/mL INJ 1 mL 10 MG IVP (16:48)
[2021-04-10] MEDS: metoprolol tartrate 1 mg/1 mL SDV 5 mL 5 MG IV (16:50)
[2021-04-10 17:00] LABS: Basophils % 0.4 %; Hemoglobin 11.8 g/dL (11.5-15.3); Lymphocytes # 1.7 10^3/uL (0.8-4.8); Lymphocytes % 16.1 %; Mean Corpuscular HGB Conc 30.3 g/dL (30.0-36.0); Mean Corpuscular Hemoglobin 27.4 pg (28.0-34.0); Mean Corpuscular Volume 90.5 fL (81-99); Mean Platelet Volume 12.2 fL (7.4-10.4); Monocytes # 0.6 10^3/uL (0.2-0.9); Monocytes % 6.1 %; Neutrophils # 8.02 10^3/uL (1.8-7.7); Neutrophils % 77.1 %; Nucleated Red Blood Cells % 0 %; Platelet Count 189 10^3/cmm (130-400); Red Blood Count 4.31 10^6/uL (4.1-5.3); Red Cell Distribution Width 15.6 % (12.1-15.1); White Blood Count 10.4 10^3/uL (4.0-10.0)
[2021-04-10] MEDS: nicardipine 20 MG/200 ML PREMIX 50 MG IV (17:12)
--- NOTE | 2021-04-10 17:17 | CTR_ITS ---
PROCEDURE INFORMATION: Exam: CT Angiography Head With Contrast, Arteriography Exam date and time: 04/10/2021 5:17 PM Age: 76 years old Clinical indication: Headache; Additional info: Subarachniod hemmorhage TECHNIQUE: Imaging protocol: Computed tomography angiography of the head with contrast. Exam focused on the arteries. 3D rendering (Not supervised by radiologist): MIP and/or 3D reconstructed images were created by the technologist. Radiation optimization: All CT scans at this facility use at least one of these dose optimization techniques: automated exposure control; mA and/or kV adjustment per patient size (includes targeted exams where dose is matched to clinical indication); or iterative reconstruction. Contrast material: OMNI 350; Contrast volume: 95 ml; Contrast route: INTRAVENOUS (IV); COMPARISON: CT head wo con* [id number] 04/10/2021 4:26 PM RADIATION DOSE METRICS: Total DLP (mGy-cm): 1352.63 FINDINGS: ANTERIOR CIRCULATION: Right internal carotid artery: Calcified plaque causes mild stenosis of the right carotid siphon. 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 A small saccular protrusion is seen at is region measuring up approximately 1 x 2 mm just distal to the posterior communicating artery is (image 168 series 4 for reference). Right middle cerebral artery: Unremarkable. No occlusion or significant stenosis. No aneurysm. Right anterior cerebral artery: Unremarkable. No occlusion or significant stenosis. No aneurysm. Left internal carotid artery: Calcified plaque causes [id number] stenosis of the left carotid siphon No aneurysm. Left middle cerebral artery: Unremarkable. No occlusion or significant stenosis. No aneurysm. Left anterior cerebral artery: Unremarkable. No occlusion or significant stenosis. No aneurysm. POSTERIOR CIRCULATION: Right vertebral artery: Unremarkable. No occlusion or significant stenosis. No aneurysm. Left vertebral artery: Unremarkable. No occlusion or significant stenosis. No aneurysm. Basilar artery: Unremarkable. No occlusion or significant stenosis. No aneurysm. Right posterior cerebral artery: Unremarkable. No occlusion or significant stenosis. No aneurysm. Left posterior cerebral artery: Unremarkable. No occlusion or significant stenosis. No aneurysm. IMPRESSION: 1. Mild right and [id number] left carotid siphon stenoses are appreciated. Otherwise, the intracranial arteries are patent. 2. 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 A tiny saccular aneurysm component in the supraclinoid right ICA is also appreciated measuring approximately 1 x 2 mm. PROCEDURE INFORMATION: Exam: CT Angiography Neck With Contrast Exam date and time: 04/10/2021 5:17 PM Age: 76 years old Clinical indication: Headache; Additional info: Subarachniod hemmorhage TECHNIQUE: Imaging protocol: Computed tomography angiography of the neck with contrast. 3D rendering (Not supervised by radiologist): MIP and/or 3D reconstructed images were created by the technologist. Radiation optimization: All CT scans at this facility use at least one of these dose optimization techniques: automated exposure control; mA and/or kV adjustment per patient size (includes targeted exams where dose is matched to clinical indication); or iterative reconstruction. Contrast material: OMNI 350; Contrast volume: 95 ml; Contrast route: INTRAVENOUS (IV); COMPARISON: CT head wo con* [id number] 04/10/2021 4:26 PM RADIATION DOSE METRICS: Total DLP (mGy-cm): 1352.63 FINDINGS: Right common carotid artery: Noncalcified plaque causes mild stenosis of the distal right common carotid artery. Mild stenosis of the right carotid bulb is also appreciated secondary to calcified plaque. Right internal carotid artery: Mixed atherosclerotic plaque causes mild stenosis of the proximal right ICA. Right external carotid artery: Calcified plaque causes mild stenosis of the right ECA origin. Left common carotid artery: Noncalcified plaque causes mild stenosis of the left mid common carotid artery. Calcified plaque causes mild stenosis of the left carotid bulb. Left internal carotid artery: Patent. No occlusion, stenosis or dissection. Left external carotid artery: No occlusion or stenosis of the origin. Right vertebral artery: No stenosis. No dissection or occlusion. Left vertebral artery: No stenosis. No dissection or occlusion. Soft tissues: Normal. No significant soft tissue swelling. Bones/joints: Small sclerotic focus in the T5 vertebral body is likely benign. Mild degenerative changes are observed in the lower cervical spine. No acute fracture is detected. CT/CT angio headneck* [id number] IMPRESSION: Mild stenoses of bilateral common carotid arteries, proximal right ICA and right ECA origin. REFERENCES: NASCET CRITERIA. The degree of internal carotid artery stenosis is based on NASCET criteria. Normal is no stenosis. Mild is less than 50% stenosis. Moderate is 50-69% stenosis. Severe is 70% to 99% stenosis. Total occlusion is no detectable patent lumen. Radiation Dose CTDIVOL = (mGy): DLP = 1352.63~1352.63 (mGy-cm)
--- NOTE | 2021-04-10 17:19 | PC.NURSE ---
patient stated headache getting better, 4-5/10 at this time.
[2021-04-10 17:25] LABS: Alanine Aminotransferase 73 U/L (0-33); Albumin Level 3.7 g/dL (3.5-5.2); Alkaline Phosphatase 260 IU/L (35-105); Blood Urea Nitrogen 19 mg/dL (8-23); Calcium 8.5 mg/dL (8.5-10.5); Carbon Dioxide 22 mmol/L (22-29); Chloride 104 mmol/L (98-107); Globulin 3.4 g/dL (1.3-4.6); Glucose 85 mg/dL (65-115); Osmolality Calculated 288 mOsm/kg (285-295); Sodium 138 mmol/L (136-145); Total Bilirubin 0.6 mg/dL (0.15-1.2); Total Protein 7.1 g/dL (6.6-8.7)
[2021-04-10 17:32] LABS: Aspartate Amino Transferase 128 U/L (0-32)
[2021-04-10] MEDS: iohexol 350 mg/mL 100 mL Btl IV (17:42)
[2021-04-10] MEDS: nicardipine 20 MG/200 ML PREMIX 150 MG IV ×2 (19:02→20:00)
[2021-04-10 19:34] LABS: SARS Covid-2 Antigen Negative (Negative)
== END 2021-04-10 20:12 | disposition short-term general hospital (02) ==
PROVIDERS: Emergency Medicine; Emergency Provider Family Medicine; PCP Nurse Practitioner Family
DX: I60.9 Nontraumatic subarachnoid hemorrhage, unspecified (principal); I16.9 Hypertensive crisis, unspecified; E78.5 Hyperlipidemia, unspecified; I10 Essential (primary) hypertension
CPT/HCPCS: 70450; 70496; 70498; 80053; 85025; 87426; 96365; 96366; 96375; 99285; J0360; J3490; Q9967